=== PATIENT | female | born 1960 | race Caucasian/White ===

== ENCOUNTER 2017-03-21 16:41 | Emergency (ER) | payer OTHER ==
[2017-03-21 16:56] VITALS: BP 149/78; PULSE 79; TEMP 97.4; BMI 19.5
--- NOTE | 2017-03-21 16:58 | PDOC ---
History of Present Illness - General Chief Complaint: Bone Injury Stated Complaint: LEFT FOOT INJURY 2 WEEKS AGO Time Seen by Provider: 03/21/17 16:48 - History of Present Illness Initial Comments: 03/21/17 16:56 56-year-old female with a past medical history of COPD She states that a week and a half to 2 weeks ago she stubbed her left fifth toe on a heavy trunk in her room She's been having some pain and swelling since then, with ecchymoses and bruising She denies any pain in her first through fourth toes She denies any numbness or tingling She denies any other injury Past History - Past Medical History Allergies/Adverse Reactions: Allergies Allergy/AdvReac Type Severity Reaction Status Date / Time latex Allergy Severe SWELLING,RE Verified 03/21/17 16:43 DNESS aspirin Allergy Unknown Verified 03/21/17 16:43 Home Medications: Ambulatory Orders NK [No Known Home Medication] 03/21/17 Anemia: No Asthma: Yes Cancer: Yes (CERVIX,HAD SX 22 YRS AGO) Cardiac Disorders: No CVA: No COPD: Yes CHF: No Dementia: No Diabetes: No GI Disorders: No Disorders: No HTN: No Hypercholesterolemia: No Liver Disease: No Seizures: No Thyroid Disease: No - Surgical History Abdominal Surgery: No Appendectomy: No Cardiac Surgery: No Cholecystectomy: No Lung Surgery: Yes (NODULE RIGHT LUNG 2003) Neurologic Surgery: No Orthopedic Surgery: Yes (LEFT ANKLE SX 40 YRS AGO,BENIGN NODULE RIGHT) - Immunization History Td Vaccination: Yes Immunization Up to Date: Yes - Psycho/Social/Smoking Cessation Hx Suicidal Ideation: No Smoking Status: Yes Smoking History: Current every day smoker Have you smoked in the past 12 months: Yes Number of Cigarettes Smoked Daily: 15 'Breaking Loose' booklet given: 05/01/16 Hx Alcohol Use: Yes (SOCIAL) Drug/Substance Use Hx: No Substance Use Type: None Hx Substance Use Treatment: No *Physical Exam - Physical Exam Comments: 03/21/17 16:57 Physical exam Patient is alert and answering questions Head is normocephalic and atraumatic Left lower extremity- There is full range of motion of the left knee and left ankle The dorsalis pedis pulses intact There is no tenderness on the first through fourth toes The fifth toe is ecchymotic and tender All toes are warm with intact sensation ED Treatment Course - RADIOLOGY Radiology Studies Ordered: Category Date Time Status TOE(S) LEFT [RAD] Stat Radiology 03/21/17 16:55 Ordered Medical Decision Making - Medical Decision Making 03/21/17 17:40 X-ray show a fracture of the left fifth toe Fourth and fifth toes efrain taped for stabilization Patient instructed on how to retape Impression-fracture of left fifth toe *DC/Admit/Observation/Transfer Diagnosis at time of Disposition: Fracture of phalanx of toe of left foot - Discharge Dispostion Disposition: HOME Condition at time of disposition: Stable - Referrals Referrals: Kristian Haynes MD [Staff Physician] - Call tomorrow (Orthopedics-please call for an appointment) - Patient Instructions Printed Discharge Instructions: Toe Fracture, DI for Toe Fracture Additional Instructions: Efrain tape toes as directed Tylenol or Motrin for pain Follow-up with orthopedics-call for an appointment Followup with your primary care physician Return immediately if you worsen in any way
== END 2017-03-21 18:02 | disposition home or self-care (01) ==
LOC: FER 16:41
PROC: 2W3VXYZ Immobilization of Left Toe using Other Device (ICD-10-PCS; principal; 2017-03-21)
DX: S92.515A Nondisplaced fracture of proximal phalanx of left lesser toe(s), initial encounter for closed fracture (principal); W22.03XA Walked into furniture, initial encounter; Y93.89 Activity, other specified; Y92.9 Unspecified place or not applicable; F17.210 Nicotine dependence, cigarettes, uncomplicated; J44.9 Chronic obstructive pulmonary disease, unspecified; J45.909 Unspecified asthma, uncomplicated; Z85.41 Personal history of malignant neoplasm of cervix uteri
CPT/HCPCS: 29550; 73660-TC; 99282-25

== ENCOUNTER 2018-10-04 17:48 | Emergency (ER) | payer OTHER ==
[2018-10-04 17:58] VITALS: BP 150/71; PULSE 72; TEMP 98; BMI 17.8
--- NOTE | 2018-10-04 18:00 | PDOC ---
History of Present Illness - General Chief Complaint: Pain Stated Complaint: right ribcage pain Time Seen by Provider: 10/04/18 18:00 History Source: Patient Exam Limitations: No Limitations - History of Present Illness Initial Comments: 10/04/18 18:05 58 year old female with PMH emphyema presented to ED for right rib pain associated with increased cough and sputum x3 weeks. Pt denied fever, chills, vomiting, dysuria, increased urinary frequency, chest pain, shortness of breath. Allergies: NKDA Past History - Past Medical History Allergies/Adverse Reactions: Allergies Allergy/AdvReac Type Severity Reaction Status Date / Time latex Allergy Severe SWELLING,RE Verified 10/04/18 17:53 DNESS aspirin Allergy Unknown Verified 10/04/18 17:53 Home Medications: Ambulatory Orders Azithromycin [Zithromax 250mg Tablets -] 250 mg PO UTDICT #6 tab 10/04/18 Lidocaine 5% Patch [Lidoderm Patch -] 1 patch TP DAILY #5 patch 10/04/18 predniSONE [Deltasone -] 40 mg PO DAILY #14 tablet 10/04/18 Anemia: No Asthma: Yes Cancer: Yes (CERVIX,HAD SX 22 YRS AGO) Cardiac Disorders: No CVA: No COPD: Yes CHF: No Dementia: No Diabetes: No GI Disorders: No Disorders: No HTN: No Hypercholesterolemia: No Liver Disease: No Seizures: No Thyroid Disease: No - Surgical History Abdominal Surgery: No Appendectomy: No Cardiac Surgery: No Cholecystectomy: No Lung Surgery: Yes (NODULE RIGHT LUNG 2003) Neurologic Surgery: No Orthopedic Surgery: Yes (LEFT ANKLE SX 40 YRS AGO,BENIGN NODULE RIGHT) - Immunization History Td Vaccination: Yes Immunization Up to Date: Yes - Suicide/Smoking/Psychosocial Hx Smoking Status: Yes Smoking History: Current every day smoker Have you smoked in the past 12 months: Yes Number of Cigarettes Smoked Daily: 3 Information on smoking cessation initiated: Yes 'Breaking Loose' booklet given: 05/01/16 Hx Alcohol Use: Yes (occasional) Drug/Substance Use Hx: No Substance Use Type: None Hx Substance Use Treatment: No Review of Systems - Review of Systems Able to Perform ROS?: Yes Comments:: 10/04/18 18:06 General: denied fever, chills, night sweats, generalized weakness. HEENT: denied sore throat, rhinorrhea, ear pain. Heart: denied chest pain, palpitations, syncope, lower extremity swelling, diaphoresis. Respiratory: admitted to cough, sputum production. denied shortness of breath, hemoptysis. Chest: admitted to rib pain. Abdomen: denied abdominal pain, nausea, vomiting, diarrhea, constipation, blood in stool. : denied dysuria, increased urinary frequency, hematuria, urinary incontinence , flank pain. Back: denied back pain. Musculoskeletal: denied joint pain, muscle pain, joint swelling. Neurological: denied headache, dizziness, numbness, tingling, weakness. Skin: denied rash, laceration, abrasion. *Physical Exam - Vital Signs Last Vital Signs Temp Pulse Resp BP Pulse Ox 98 F 72 18 150/71 100 10/04/18 17:50 10/04/18 17:50 10/04/18 17:50 10/04/18 17:50 10/04/18 17:50 - Physical Exam Comments: 10/04/18 18:07 Constitutional: Well-nourished, Well-developed, appearing stated age. HEENT: head is normocephalic, atraumatic. EOMI. PERRLA. Neck: supple. Full ROM. Heart: regular rhythm. no murmurs, rubs or gallops. Lungs: clear to auscultation bilaterally. no crackles, rhonchi or wheezing. no stridor. Chest: tenderness to palpation of lower ribs anteriorly, laterally. Abdomen: soft, nontender. normal bowel sounds. no rebound, guarding, masses. Extremities: Peripheral pulses intact. No lower extremity edema. Neurological: CN 2-12 grossly intact. Moves all four extremities. Psych: awake, alert, oriented x3. Follows commands. Answers questions appropriately. Moderate Sedation - Procedure Monitoring Vital Signs: Procedure Monitoring Vital Signs Temperature 98 F 10/04/18 17:50 Pulse Rate 72 10/04/18 17:50 Respiratory Rate 18 10/04/18 17:50 Blood Pressure 150/71 10/04/18 17:50 O2 Sat by Pulse Oximetry (%) 100 10/04/18 17:50 Medical Decision Making - Medical Decision Making 10/04/18 18:08 58 year old female with above PMH presented to ED for increased cough/sputum with associated right rib pain. Initial Vital Signs Temp Pulse Resp BP Pulse Ox 98 F 72 18 150/71 100 10/04/18 17:50 10/04/18 17:50 10/04/18 17:50 10/04/18 17:50 10/04/18 17:50 Afebrile. No tachycardia. No tachypnea. Mild hypertension. No hypoxia on room air. Pt stated she took tylenol with codeine at 1600 today. Pending CXR. Medications ordered: prednisone 40 mg, duoneb, lidoderm patch. Pt to be discharged with prednisone, lidoderm patch and Z-pack. 10/04/18 19:04 CXR - no infiltrate. sharp costophrenic angles. no cardiomegaly. no pneumothorax. Pt reported improvement of symptoms. Pt to be discharged. *DC/Admit/Observation/Transfer Diagnosis at time of Disposition: COPD exacerbation, Rib pain - Discharge Dispostion Disposition: HOME Condition at time of disposition: Stable Decision to Admit order: No - Prescriptions Prescriptions: Azithromycin [Zithromax 250mg Tablets -] 250 mg PO UTDICT #6 tab Lidocaine 5% Patch [Lidoderm Patch -] 1 patch TP DAILY #5 patch predniSONE [Deltasone -] 40 mg PO DAILY #14 tablet - Referrals - Patient Instructions Printed Discharge Instructions: Smoking Cessation Additional Instructions: You were seen today for cough and rib pain. Your X-ray was normal. I have sent a prescription to your pharmacy for steroid, antibiotic and lidoderm patch, take as advised on labels. Take tylenol and or motrin over the counter for your pain, take as advised on labels. Follow up with your primary care doctor in 2-3 days. Return to the Emergency Department for worsening of symptoms, chest pain, shortness of breath, coughing up blood, lightheadedness or any other new, worsening or concerning symptoms. - Post Discharge Activity Forms/Work/School Notes: Back to Work
[2018-10-04] MEDS ORDERED: LIDOCAINE 5% TOPICAL PATCH TP ONE (18:11)
[2018-10-04] MEDS ORDERED: ALBUTEROL SO4 2.5/IPRATROPIUM 0.5 INH SOL 3 ML VIAL.NEB. NEB ONE ×2 (18:13→18:21)
[2018-10-04] MEDS ORDERED: predniSONE 20 MG TABLET (UD) PO ONE (18:14)
[2018-10-04] MEDS ORDERED: predniSONE 20 MG TABLET (UD) ONE (18:21)
[2018-10-04] MEDS ORDERED: LIDOCAINE 5% TOPICAL PATCH ONE (18:21)
--- NOTE | 2018-10-04 18:53 | PDOC ---
Attending Attestation - Resident Resident Name: Tigist Perdue - ED Attending Attestation I have performed the following: I have examined & evaluated the patient, The case was reviewed & discussed with the resident, I agree w/resident's findings & plan - Medical Decision Making 10/04/18 18:52\ I, Brenda Pavon MD, attest that this document has been prepared under my direction and personally reviewed by me in its entirety. I further attest, that it accurately reflects all work, treatment, procedures and medical decision -making performed by me. HPI as documented Vital signs reviewed, wnl. No hypoxia, respiratory distress or derangements. Prior notes reviewed, including admissions, discharges and consultations. CXR_clear, no effusion or consolidation. ED course: duonebs, prednisone and Zpak initiated Topical lidoderm patch to right side, likely costochondritis, very tender to palpation likely from accessory muscle use. Rx prednisone and remainder of azithromycin ,given copd history and inflammatory responses. Dispo: I discussed the physical exam findings, ancillary test results and final diagnoses with the patient. I answered all of the patient's questions. The patient was satisfied with the care received and felt comfortable with the discharge plan and treatment plan. The patient will return to the Emergency Department with any new, persistent or worsening symptoms. 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 The patient reports that her pain began 3 weeks ago, is most prominent on the right side of her rib cage, and notes an associated cough productive of sputum. Patient denies headache, lightheadedness. Denies fever, chills. Denies chest pain, shortness of breath. Denies nausea, vomiting, diarrhea, abdominal pain. Allergies: latex, aspirin Surgical history: none reported PCP: none reported - Physicial Exam PE: 10/04/18 18:53 NAD, well appearing, PERRL, EOMI, MMM, nl conjunctiva, anicteric; neck supple. lungs clear, RRR, lateral right chest wall tender to palpation, no crepitus, abdomen soft nontender. NIX x4, no focal neuro deficits. No peripheral edema. normal color for ethnicity, [facility]. <Per Aguila - Last Filed: 10/04/18 18:53>
[2018-10-04] MEDS ORDERED: LIDOCAINE PATCH REMOVAL MC SCH (22:00)
[2018-10-05] MEDS ORDERED: predniSONE 20 MG TABLET (UD) PO ONE (18:12)
== END 2018-10-04 19:10 | disposition home or self-care (01) ==
LOC: FER 17:48
PROC: 3E0F7GC Introduction of Other Therapeutic Substance into Respiratory Tract, Via Natural or Artificial Opening (ICD-10-PCS; principal; 2018-10-04)
DX: J44.9 Chronic obstructive pulmonary disease, unspecified (principal); R07.81 Pleurodynia
CPT/HCPCS: 71046-TC-FY; 94640; 99282-25

== ENCOUNTER 2022-06-30 15:00 | Emergency (ER) | payer OTHER ==
[2022-06-30] MEDS ORDERED: KETOROLAC TROMETHAMINE 30 MG/1 ML VIAL IM ONE (15:29)
[2022-06-30] MEDS ORDERED: LIDOCAINE 5% TOPICAL PATCH TP ONE (15:30)
[2022-06-30 15:39] VITALS: BP 130/70; PULSE 90; RESP 20; TEMP 98.5; BMI 16.6
[2022-06-30] MEDS ORDERED: KETOROLAC TROMETHAMINE 30 MG/1 ML VIAL ONE (15:51)
[2022-06-30] MEDS ORDERED: LIDOCAINE 5% TOPICAL PATCH ONE (15:52)
[2022-06-30] MEDS ORDERED: LIDOCAINE PATCH REMOVAL MC SCH (22:00)
== END 2022-06-30 16:05 | disposition home or self-care (01) ==
LOC: FER 15:00
PROC: 3E0233Z Introduction of Anti-inflammatory into Muscle, Percutaneous Approach (ICD-10-PCS; principal; 2022-06-30)
DX: M54.50 Low back pain, unspecified (principal)
CPT/HCPCS: 99284-25